=== PATIENT | male | born 1945 | race Caucasian/White ===

== ENCOUNTER 2018-01-27 09:51 | Outpatient (CLI) | payer MEDICARE ==
--- NOTE | 2018-01-27 11:43 | ULT ---
THYROID ULTRASOUND: Date: 01-27-18 History: Follow up thyroid nodules. Comparison: 12-28-15 FINDINGS: Right lobe of the thyroid gland measures 4.8 cm x 1.4 cm x 1.8 cm with the left lobe measuring 5.1 cm x 1.78 cm x 2.1 cm. Thyroid isthmus measures 0.47 cm in thickness. The left lobe of the thyroid gland demonstrates heterogeneity and there are two complex appearing nod ules in the left lobe of the thyroid gland. The margins of these nodules are difficult to delineate a s portions of the nodules appear isoechoic to adjacent thyroid gland. However, the nodule within the midportion of the left lobe of the thyroid gland measures approximately 1.5 cm with nodule in the inf erior pole measuring approximately 1.2 cm. The inferior pole left lobe of the thyroid gland on the prior exam also demonstrated overall generali zed heterogeneity within the inferior pole left lobe of the thyroid gland. No nodule is seen in the right lobe of the thyroid gland. IMPRESSION: Heterogeneity left lobe of the thyroid gland with two heterogeneous nodules in the inferior pole left lobe of the thyroid gland, but the margins are difficult to adequately delineate due to isoechoic ap pearance of the periphery of these nodules. While only a single measurable nodule was present on the prior study, there did appear to be a larger area of heterogeneity. POS: RAVINDRA
== END 2018-01-27 09:52 | disposition home or self-care (01) ==
LOC: SCSULT 09:51
PROVIDERS: ATTEND Otolaryngology Plastic Surgery within the Head & Neck
DX: E04.2 Nontoxic multinodular goiter (principal)
CPT/HCPCS: 76536

== ENCOUNTER 2019-02-27 09:39 | Outpatient (CLI) | payer MEDICARE ==
--- NOTE | 2019-02-27 10:39 | ULT ---
THYROID ULTRASOUND: HISTORY: Thyroid nodule. FINDINGS: Real-time imaging of the right and left lobes of the thyroid gland was performed. The right lobe jnaie sures 1.3 x 1.3 x 4.7 cm and the left lobe 1.6 x 2 x 5 cm. The gland is very heterogeneous. There a re several ill-defined areas of nodularity, all subcentimeter in size. The largest nodule is a compl ex left lobe thyroid lobe nodule that measures 1.1 x 1.4 cm which would correspond to a TIRADS 3 lesi on and in this size range followup is recommended. IMPRESSION: Heterogeneous gland with a TIRADS 3 left lobe thyroid nodule. This nodule is difficult to definite g iven the overall heterogeneity to the gland, but in reviewing the 01/27/2018 ultrasound study, I do no t see that there is a definite interval change in the appearance of the left lobe heterogeneity. POS: CET
== END 2019-02-27 09:40 | disposition home or self-care (01) ==
LOC: SCSULT 09:39
PROVIDERS: ATTEND Otolaryngology Plastic Surgery within the Head & Neck
DX: E04.1 Nontoxic single thyroid nodule (principal)
CPT/HCPCS: 76536